=== PATIENT | female | born 1945 | race Two or more races ===

== ENCOUNTER 2024-10-02 07:34 | Outpatient (CLI) | payer OTHER | END 2024-10-02 07:41 | disposition home or self-care (01) | LOC: RAD 07:34 | PROVIDERS: ATTEND Orthopaedic Surgery | DX: S72.141D Displaced intertrochanteric fracture of right femur, subsequent encounter for closed fracture with routine healing (principal); X58.XXXD Exposure to other specified factors, subsequent encounter ==

== ENCOUNTER 2024-11-10 07:20 | Outpatient (CLI) | payer OTHER | END 2024-11-10 07:22 | disposition home or self-care (01) | LOC: RAD 07:20 | PROVIDERS: ATTEND Orthopaedic Surgery | DX: S72.141D Displaced intertrochanteric fracture of right femur, subsequent encounter for closed fracture with routine healing (principal); X58.XXXD Exposure to other specified factors, subsequent encounter ==